=== PATIENT | male | born 1990 | race Hispanic/Latino ===

== ENCOUNTER 2021-12-02 21:53 | Emergency (ER) | payer SELFPAY ==
[~2021-12-02] VITALS: Ht 190.5 cm; Wt 112.5 kg
[2021-12-02 22:57] LABS: BASOPHILS # (AUTO) 0.1 (0.0-0.1); BASOPHILS % 0.5 % (0.0-1.0); EOSINOPHILS # (AUTO) 0.1 (0.0-0.4); EOSINOPHILS % 0.6 % (0.0-6.0); HEMATOCRIT 44.1 % (38.2-49.6); HEMOGLOBIN 13.8 g/dL (14.0-18.0); MEAN CORPUSCULAR HEMOGLOBIN 29.1 pg (28-32); MEAN CORPUSCULAR HGB CONC 31.3 g/dL (31-35); MEAN CORPUSCULAR VOLUME 92.8 fL (81-99); MONOCYTES # (AUTO) 0.8 (0.2-0.8); MONOCYTES % 7.7 % (4.4-11.3); NEUTROPHILS # (AUTO) 6.5 (2.1-6.9); NEUTROPHILS % 61.9 % (38.7-80.0); PLATELET COUNT 365 x10e3/uL (140-360); RED BLOOD COUNT 4.75 x10e6/uL (4.3-5.7)
[2021-12-02 23:16] LABS: ALBUMIN/GLOBULIN RATIO 1.1 (0.8-2.0); CALCIUM 9.4 mg/dL (8.4-10.2); CREATININE, SERUM 0.9 mg/dL (0.72-1.25)
[2021-12-02 23:24] LABS: AMPHETAMINES SCREEN,URINE NEGATIVE (NEGATIVE); BENZODIAZEPINES SCREEN,URINE NEGATIVE (NEGATIVE); CLARITY,URINE CLEAR (CLEAR); COLOR,URINE YELLOW (YELLOW); KETONES,URINE NEGATIVE (NEGATIVE); LEUKOCYTE ESTERASE ,URINE NEGATIVE (NEGATIVE); NITRITE,URINE NEGATIVE (NEGATIVE); PHENCYCLIDINE SCREEN,URINE NEGATIVE (NEGATIVE); PROTEIN,URINE DIPSTICK NEGATIVE (NEGATIVE)
[2021-12-02 23:25] LABS: URINE UROBILINOGEN 0.2 mg/dL (0.2 - 1)
[2021-12-02 23:26] LABS: HIV 1&2 AB SCREEN NON-REACTIVE (NONREACTIVE)
[2021-12-02 23:28] LABS: BACTERIA,URINE RARE /HPF; EPITHELIAL CELLS,URINE RARE /LPF; WBC,URINE (MAN) 0-5 /HPF (0-5)
[2021-12-02] MEDS ORDERED: SODIUM CHLORIDE 0.9% 50ML 50 ML ONE (23:56)
[2021-12-02] MEDS ORDERED: IOPAMIDOL 370 MG/ML 200 ML INFUS..BTL INJ ONE (23:56)
== END 2021-12-03 00:46 | disposition home or self-care (01) ==
LOC: ER 22:06
DX: R20.2 Paresthesia of skin (principal); R51.9 Headache, unspecified; M54.50 Low back pain, unspecified
CPT/HCPCS: 36415; 72132; 80053; 80307; 81001; 85025; 87390; 99284; G0433; G0435; Q9967

== ENCOUNTER 2022-01-14 19:15 | Emergency (ER) | payer SELFPAY ==
[~2022-01-14] VITALS: Ht 190.5 cm; Wt 110.7 kg
[2022-01-14] MEDS ORDERED: IBUPROFEN600 MG PO (21:14)
[2022-01-14 22:59] VITALS: BP 129/84
== END 2022-01-14 23:03 | disposition home or self-care (01) ==
LOC: ER 19:18
DX: U07.1 COVID-19 (principal); R05.9 Cough, unspecified; R06.00 Dyspnea, unspecified; M79.661 Pain in right lower leg
CPT/HCPCS: 93971; 99283

== ENCOUNTER 2022-03-03 15:44 | Emergency (ER) | payer SELFPAY ==
[~2022-03-03] VITALS: Ht 190.5 cm; Wt 110.7 kg
[~2022-03-03 15:44] MED LIST: IBUPROFEN600 MG PO
[2022-03-03] MEDS ORDERED: AZITHROMYCIN 250 MG TAB PO ONE (16:30)
[2022-03-03] MEDS ORDERED: AZITHROMYCIN 250 MG TAB ONE (16:50)
[2022-03-03 17:01] LABS: CLARITY,URINE SL CLOUDY (CLEAR); COLOR,URINE STRAW (YELLOW); KETONES,URINE 1+ (NEGATIVE); LEUKOCYTE ESTERASE ,URINE NEGATIVE (NEGATIVE); NITRITE,URINE NEGATIVE (NEGATIVE); PROTEIN,URINE DIPSTICK NEGATIVE (NEGATIVE); URINE UROBILINOGEN 0.2 mg/dL (0.2 - 1)
[2022-03-03 17:14] LABS: BACTERIA,URINE MODERATE /HPF; MUCUS,URINE FEW (RARE)
== END 2022-03-03 16:50 | disposition home or self-care (01) ==
LOC: ER 16:34
DX: R30.0 Dysuria (principal); N39.0 Urinary tract infection, site not specified; F41.9 Anxiety disorder, unspecified
CPT/HCPCS: 81001; 87086; 99282

== ENCOUNTER 2022-04-12 19:33 | Emergency (ER) | payer SELFPAY ==
[~2022-04-12] VITALS: Ht 190.5 cm; Wt 110.7 kg
[2022-04-12 20:43] LABS: CLARITY,URINE CLEAR (CLEAR); COLOR,URINE YELLOW (YELLOW); KETONES,URINE NEGATIVE (NEGATIVE); LEUKOCYTE ESTERASE ,URINE NEGATIVE (NEGATIVE); NITRITE,URINE NEGATIVE (NEGATIVE); PROTEIN,URINE DIPSTICK NEGATIVE (NEGATIVE); URINE UROBILINOGEN 0.2 mg/dL (0.2 - 1)
== END 2022-04-12 22:00 | disposition home or self-care (01) ==
LOC: ER 20:10
DX: N30.90 Cystitis, unspecified without hematuria (principal); Z88.8 Allergy status to other drugs, medicaments and biological substances
CPT/HCPCS: 74176; 81001; 99282